=== PATIENT | female | born 1945 | race Caucasian/White ===

== ENCOUNTER 2018-02-25 08:04 | Emergency (ER) | payer MEDICARE, OTHER ==
[~2018-02-25] VITALS: Ht 162.6 cm; Wt 63.5 kg
[~2018-02-25 08:04] MED LIST: HORMONE REPLACEMENT; HYDMOR4 PO; MECL12.5 PO; NEBI10 PO; NEBI5 PO; OXYACE5T PO; OXYC5 PO; PROM25 PO; Roxicodone5 MG PO
[2018-02-25] MEDS ORDERED: Ultram50 MG PO (09:11)
[2018-02-25] MEDS ORDERED: Zofran4 MG PO (09:11)
[2018-02-25] MEDS ORDERED: METPRE4DP PO (09:11)
[2018-02-25] MEDS ORDERED: Valium5 MG PO (09:11)
== END 2018-02-25 10:00 | disposition home or self-care (01) ==
LOC: ER 08:04
DX: M62.830 Muscle spasm of back (principal); Z88.8 Allergy status to other drugs, medicaments and biological substances; Z88.5 Allergy status to narcotic agent; Z88.2 Allergy status to sulfonamides; Z79.899 Other long term (current) drug therapy
CPT/HCPCS: J1100; J3010

== ENCOUNTER 2020-07-12 15:39 | Inpatient (IN) | payer MEDICARE, OTHER ==
[~2020-07-12] VITALS: Ht 162.6 cm; Wt 68.2 kg
[~2020-07-12 15:39] MED LIST changes: +METPRE4DP PO; +Ultram50 MG PO; +Valium5 MG PO; +Zofran4 MG PO
[2020-07-12] MEDS ORDERED: Methocarbamol500 MG PO (16:00)
[2020-07-12] MEDS ORDERED: [UNRECOGNIZED DRUG - OTHER] (16:01)
[2020-07-12 16:18] LABS: BASOPHILS ABSOLUTE AUTO 0.05 K/mm3 (0.00-0.23); BASOPHILS PERCENT AUTO 1 % (0-2); EOSINOPHILS ABSOLUTE AUTO 0.09 K/mm3 (0.00-0.68); EOSINOPHILS PERCENT AUTO 1 % (0-6); Hematocrit 42.9 % (33.0-51.0); Hemoglobin 14.4 g/dL (11.5-16.0); IMMATURE GRAN ABSOLUTE AUTO 0.03 K/mm3 (0.00-0.10); IMMATURE GRAN PERCENT AUTO 0 % (0-1); LYMPHOCYTES ABSOLUTE AUTO 2.44 K/mm3 (0.84-5.20); LYMPHOCYTES PERCENT AUTO 26 % (21-46); MONOCYTES ABSOLUTE AUTO 0.69 K/mm3 (0.16-1.47); MONOCYTES PERCENT AUTO 7 % (4-13); Mean Corpuscular HGB Conc 33.6 g/dL (31.5-36.5); Mean Corpuscular Volume 98 fL (80-100); Mean Platelet Volume 9.9 fL (9.1-12.4); NEUTROPHILS ABSOLUTE AUTO 5.97 K/mm3 (1.96-9.15); NEUTROPHILS PERCENT AUTO 65 % (41-73); Platelet Count 253 K/mm3 (150-400); RDW Coefficient Variation 12.4 % (11.7-14.2); RDW Standard Deviation 45.1 fL (35.1-46.3); Red Blood Cell Count 4.36 M/mm3 (3.80-5.20); White Blood Cell Count 9.27 K/mm3 (4.00-11.30)
[2020-07-12 16:31] LABS: Alanine Aminotransfer (ALT/SGP 27 U/L (12-78); Albumin, Blood 3.1 g/dL (3.4-5.0); Albumin/Globulin Ratio 0.8 (0.8-1.8); Alk Phos 74 U/L (50-136); Anion Gap 5 mmol/L (6-16); Aspartate Aminotrans (AST/SGOT 17 U/L (12-37); Bilirubin, Total 0.2 mg/dL (0.1-1.0); Blood Urea Nitrogen 17 mg/dL (8-24); Bun/Creatinine Ratio 19.9 (12.0-20.0); CO2, Blood 29 mmol/L (21-32); Calcium, Blood 8.7 mg/dL (8.5-10.1); Chloride, Blood 107 mmol/L (98-108); Creatinine, Blood 0.85 mg/dL (0.40-1.00); Globulin, Blood 4.1 g/dL (2.2-4.0); Glomerular Filtration Rate >60 (60-); Glucose, Blood 130 mg/dL (70-99); Magnesium, Blood 2.4 mg/dL (1.6-2.4); Potassium, Blood 4.2 mmol/L (3.5-5.5); Sodium, Blood 141 mmol/L (136-145); Total Protein, Blood 7.2 g/dL (6.4-8.2); Troponin I <0.015 ng/mL (0.000-0.040)
[2020-07-13 02:57] LABS: CHOL/HDL RATIO 3.3; Cholesterol 226 mg/dL (50-200); HDL Cholesterol 69 mg/dL (>39); LDL/HDL RATIO 1.9; Low Density Lipoprotein Chol 134 mg/dL (0-110); Triglycerides 113 mg/dL (30-160); Very Low Density Lipoprot Chol 22 mg/dL (6-32)
--- NOTE | 2020-07-13 05:22 | NUR ---
PT RESTED COMFORTABLY THROUGH NIGHT. BP ELEVATED - HYDRALAZINE X1 WITH CORRECTION. TROPONIN ELEVATED SOME - NOT CRITICAL. AMBULATES INDEPENDENTLY IN ROOM. VOIDING. 1 BM. TELE NSR. CALL LIGHT WITHIN REACH, BED IN LOWEST POSITION. [facility]. UPDATED DAUGHTER ABOUT PLAN FOR THE NIGHT.
--- NOTE | 2020-07-13 07:24 | NUR ---
ASSUMED PATIENT CARE. PATIENT SLEEPING COMFORTABLY IN BED, NO SIGNS OF ACUTE DISTRESS, WCTM.
[2020-07-13 11:19] LABS: CPK Creatine Kinase 171 U/L (26-193)
[2020-07-13 13:37] LABS: International Normalized Ratio 0.99; Prothrombin Time Results 10.6 Sec (9.7-11.5)
--- NOTE | 2020-07-13 18:07 | NUR ---
PATIENT DENIED CHEST PAIN THIS SHIFT, COMPLAINS OF CHRONIC NECK PAIN, HYPERTENSIVE AT TIMES. PATIENT CT NEGATIVE FOR PE, ECHO DONE, HEPARIN DRIP STARTED. PATIENT INDEPENDENT IN ROOM, SR. CRITICAL TROPONIN THIS SHIFT, DR. WAGONER NOTIFIED AND CARDIOLOGY CONSULT ORDERED. DR. LORD SAW PATIENT TODAY, PLAN IS FOR ANGIO TOMORROW.
--- NOTE | 2020-07-13 19:08 | NUR ---
RELINQUISHED PATIENT CARE.
[2020-07-14] MEDS ORDERED: MELATONIN5 M1 PO (02:02)
[2020-07-14] MEDS ORDERED: NIGHTTIME SLEEP PO (02:03)
[2020-07-14 03:48] LABS: Hematocrit 39.5 % (33.0-51.0); Hemoglobin 13.3 g/dL (11.5-16.0); Mean Corpuscular HGB 33.1 pg (26.0-34.0); Mean Corpuscular HGB Conc 33.7 g/dL (31.5-36.5); Mean Corpuscular Volume 98 fL (80-100); Mean Platelet Volume 10.3 fL (9.1-12.4); Platelet Count 222 K/mm3 (150-400); RDW Coefficient Variation 12.6 % (11.7-14.2); RDW Standard Deviation 45.2 fL (35.1-46.3); Red Blood Cell Count 4.02 M/mm3 (3.80-5.20); White Blood Cell Count 9.01 K/mm3 (4.00-11.30)
[2020-07-14 04:02] LABS: Albumin, Blood 2.8 g/dL (3.4-5.0); Anion Gap 5 mmol/L (6-16); Blood Urea Nitrogen 12 mg/dL (8-24); Bun/Creatinine Ratio 15.1 (12.0-20.0); CO2, Blood 27 mmol/L (21-32); Chloride, Blood 110 mmol/L (98-108); Glomerular Filtration Rate >60 (60-); Glucose, Blood 112 mg/dL (70-99); Phosphorus, Blood 2.6 mg/dL (2.5-4.9); Potassium, Blood 3.9 mmol/L (3.5-5.5); Sodium, Blood 142 mmol/L (136-145)
--- NOTE | 2020-07-14 04:49 | NUR ---
SHIFT SUMMARY: PATIENT ASKED TO HAVE THE SAME MEDICATIONS SHE TAKES AT HOME FOR INSOMNIA, NOTIFIED, ORDERS RECIEVED. NPO SINCE 0000, NO OTHER ISSUES NOTED.
--- NOTE | 2020-07-14 07:30 | NUR ---
ASSUMED CARE: PT RESTING QUIETLY AT THIS TIME. NPO SIGN IN PLACE FOR ANGIO LATER THIS AM. NSR ON TELE. NO ACUTE NEEDS OR CONCERNS AT THIS TIME.
--- NOTE | 2020-07-14 11:59 | NUR ---
PT TAKEN TO SPINNING OPERATOR BY [facility] STAFF AT THIS TIME.
--- NOTE | 2020-07-14 14:14 | NUR ---
PT RETURNED FROM ASSISTANCE SPECIALIST WITH TR BAND TO RIGHT WRIST. SLIGHT BRUISE NOTED. NO FURTHER SIGNS OF BLEEDING, SWELLING 12CC AIR IN TR BAND. VSS AT THIS TIME.
--- NOTE | 2020-07-14 14:22 | NUR ---
PT INSTRUCTED ON LIFTING AND MOVEMENT PRECAUTIONS WITH RIGHT WRIST
--- NOTE | 2020-07-14 14:54 | NUR ---
PT BEGAN OOZING FROM TR BAND AND BRUISING NOTED TO SPREAD BEYOND WRIST. ALREADY HAD 12CC IN PLACE AND FINGERS COLD BUT PULSE FELT. CALL TO DR HAND WHO CAME AND ADDED ANOTHER 3CC AND STATED TO KEEP INFLATED FOR EXTRA HOUR. EXERCISE INSTRUCTOR AT BEDSIDE ASSISTING AND AWARE OF ORDERS
--- NOTE | 2020-07-14 18:32 | NUR ---
SHIFT SUMMARY: STARTED TO DEFLATE TR BAND, 3CC OUT. HEMATOMA TO RIGHT ARM DARKER BUT NO LARGER. BRUISING ALSO NOTED TO RIGHT AND LEFT ARMS WHERE COBAN WAS IN PLACE PRIOR TO PROCEDURE. PT STATES SHE FELT LIKE IT WAS PINCHING HER. DENIES CHEST PAIN OR FURTHER DISCOMFORT AT THIS TIME.
--- NOTE | 2020-07-14 19:20 | NUR ---
BEDSIDE REPORT WITH SLIGHT OOZING NOTED. REINFLATED 2CC TO TR BAND. NIGHT RN AWARE AND SAW CURRENT BRUISING
--- NOTE | 2020-07-14 22:50 | NUR ---
CT PATIENT C/O SUDDEN 10/10 MCKEON, HR INCREASED TO 120 AND BP BUMPED TO 150'S SYSTOLIC, TEMP 100.0. PATIENT VOMITING. MD NOTIFIED AND MORPHINE AND ZOFRAN ADMINISTERED, PATIENT STATED THEY DID NOT WORK, LIGHT AND NOISE INCREASING PATIENTS PAIN. CT COMPLETED, SECOUND DOSE OF PAIN AND NAUSEA MEDICATION ADMINISTERED BEFORE CT. APPROX [address] PATIENT FELL ASLEEP, HR AND BP WNL AT THIS TIME. MONITORING CLOSELY, TEMP NOW 99.8.
--- NOTE | 2020-07-14 22:54 | NUR ---
TR BAND PATIENT HAD ISSUES WITH TR BAND BLEEDING WITH DEFLATION ATTEMPT ON DAY SHIFT. AT CHANGE OF SHIFT PATIENT HAD 14CC AIR IN BAND AND HAD NO SIGN OF BLEEDING, GOOD CAP REFILL AND NO NUMB SENSATIONS DISTAL TO SITE. APPROX 4CC AIR DEFLATED FROM BAND FROM 1929 TO 2199 WITH NO SIGN OF BLEEDING, NO WORSENING OF HEMATOMA, CAPILLARY REFILL <3 AND FULL SENSATION WITH NO PAIN ON HAND/FINGERS DISTAL TO SITE.
--- NOTE | 2020-07-15 05:47 | NUR ---
SHIFT SUMMARY: PATIENTS MCKEON BETTER AFTER 500ML IVF PER MD ORDERS. VSS, CALL LIGHT WTIHIN REACH, BED LOW AND LOCKED, NO OTHER ISSUES NOTED THIS SHIFT.
[2020-07-15 10:18] LABS: BASOPHILS ABSOLUTE AUTO 0.05 K/mm3 (0.00-0.23); BASOPHILS PERCENT AUTO 1 % (0-2); EOSINOPHILS ABSOLUTE AUTO 0.03 K/mm3 (0.00-0.68); EOSINOPHILS PERCENT AUTO 0 % (0-6); Hemoglobin 11.9 g/dL (11.5-16.0); IMMATURE GRAN ABSOLUTE AUTO 0.03 K/mm3 (0.00-0.10); IMMATURE GRAN PERCENT AUTO 0 % (0-1); LYMPHOCYTES ABSOLUTE AUTO 2.27 K/mm3 (0.84-5.20); LYMPHOCYTES PERCENT AUTO 22 % (21-46); MONOCYTES ABSOLUTE AUTO 1.06 K/mm3 (0.16-1.47); MONOCYTES PERCENT AUTO 10 % (4-13); Mean Corpuscular HGB Conc 33.1 g/dL (31.5-36.5); Mean Corpuscular Volume 100 fL (80-100); Mean Platelet Volume 9.9 fL (9.1-12.4); NEUTROPHILS ABSOLUTE AUTO 6.97 K/mm3 (1.96-9.15); NEUTROPHILS PERCENT AUTO 67 % (41-73); Platelet Count 212 K/mm3 (150-400); RDW Coefficient Variation 12.6 % (11.7-14.2); RDW Standard Deviation 46.3 fL (35.1-46.3); Red Blood Cell Count 3.61 M/mm3 (3.80-5.20); White Blood Cell Count 10.41 K/mm3 (4.00-11.30)
[2020-07-15 10:30] LABS: Albumin, Blood 2.4 g/dL (3.4-5.0); Anion Gap 5 mmol/L (6-16); Blood Urea Nitrogen 11 mg/dL (8-24); Bun/Creatinine Ratio 16.3 (12.0-20.0); CO2, Blood 27 mmol/L (21-32); Chloride, Blood 107 mmol/L (98-108); Creatinine, Blood 0.68 mg/dL (0.40-1.00); Glomerular Filtration Rate >60 (60-); Glucose, Blood 108 mg/dL (70-99); Phosphorus, Blood 2.6 mg/dL (2.5-4.9); Potassium, Blood 3.5 mmol/L (3.5-5.5); Sodium, Blood 139 mmol/L (136-145)
[2020-07-15] MEDS ORDERED: CLOP75 PO (10:59)
[2020-07-15] MEDS ORDERED: ATOR80 PO (10:59)
[2020-07-15] MEDS ORDERED: ASPI81CH PO (10:59)
--- NOTE | 2020-07-15 12:18 | NUR ---
PCU DISCHARGE SUMMARY PATIENT LEFT UNIT IN NO ACUTE DISTRESS HOME WITH . RESP E/U ON ROOM AIR. VSS. PATIENT VERBALIZED DISCHARGE INSTRUCTIONS FOR ALL NEW MEDICATIONS (SENT TO PHARMACY), FOLLOW UP APPTS AND POST PROCEDURE INSTRUCTIONS FOR RIGHT RADIAL SITE AND PCI. PATIENT AMBULATED 300 FEET AROUND UNIT PRIOR TO DISCHARGE AND TOLERATED WELL WITH NO CHEST PAIN OR SOB.
== END 2020-07-15 12:17 | disposition home or self-care (01) | DRG 247 ==
LOC: ER 15:39 → PCU 15:40
PROVIDERS: Emergency Medicine; Internal Medicine; ADMIT Hospitalist
PROC: 027034Z Dilation of Coronary Artery, One Artery with Drug-eluting Intraluminal Device, Percutaneous Approach (ICD-10-PCS; principal; 2020-07-14)
PROC: 4A023N7 Measurement of Cardiac Sampling and Pressure, Left Heart, Percutaneous Approach (ICD-10-PCS; 2020-07-14)
PROC: B2111ZZ Fluoroscopy of Multiple Coronary Arteries using Low Osmolar Contrast (ICD-10-PCS; 2020-07-14)
PROC: B240ZZ3 Ultrasonography of Single Coronary Artery, Intravascular (ICD-10-PCS; 2020-07-14)
DX: I21.4 Non-ST elevation (NSTEMI) myocardial infarction (principal); I10 Essential (primary) hypertension; E03.9 Hypothyroidism, unspecified; E78.5 Hyperlipidemia, unspecified; I25.10 Atherosclerotic heart disease of native coronary artery without angina pectoris
CPT/HCPCS: 36415; 70450; 71046; 71260; 76937; 80053; 80061; 80069; 82550; 83036; 83735; 84484; 85025; 85027; 85347; 85610; 85730; 92978; 93005; 93010; 93306; 93458; 96374; 96375; 96376; 99152; 99153; 99285-25; A9270-GY; C1725; C1751; C1753; C1769; C1874; C1887; C1894; C9600; G0378; J0360; J1644; J2250; J2270; J2405; J3010; J7030; J7040; J7050; Q9967

== ENCOUNTER → 2020-08-05 | Outpatient (CLI) | payer MEDICARE, OTHER ==
[~2020-08-05] MED LIST changes: +ASPI81CH PO; +ATOR80 PO; +CLOP75 PO; +MELATONIN5 M1 PO; +Methocarbamol500 MG PO; +NIGHTTIME SLEEP PO; +[UNRECOGNIZED DRUG - OTHER]
== END | disposition home or self-care (01) ==
LOC: LAB SHORT 14:28 → PLD 14:28
DX: D18.01 Hemangioma of skin and subcutaneous tissue (principal)
CPT/HCPCS: 88305

== ENCOUNTER 2021-12-15 15:52 | Emergency (ER) | payer MEDICARE, OTHER ==
[~2021-12-15] VITALS: Ht 162.6 cm; Wt 57.6 kg
[2021-12-15 17:05] LABS: BASOPHILS ABSOLUTE AUTO 0.04 K/mm3 (0.00-0.23); BASOPHILS PERCENT AUTO 1 % (0-2); EOSINOPHILS ABSOLUTE AUTO 0.09 K/mm3 (0.00-0.68); EOSINOPHILS PERCENT AUTO 1 % (0-6); Hematocrit 40.1 % (33.0-51.0); Hemoglobin 13.8 g/dL (11.5-16.0); IMMATURE GRAN ABSOLUTE AUTO 0.01 K/mm3 (0.00-0.10); IMMATURE GRAN PERCENT AUTO 0 % (0-1); LYMPHOCYTES PERCENT AUTO 28 % (21-46); MONOCYTES PERCENT AUTO 8 % (4-13); Mean Corpuscular HGB 33.3 pg (26.0-34.0); Mean Corpuscular HGB Conc 34.4 g/dL (31.5-36.5); Mean Corpuscular Volume 97 fL (80-100); Mean Platelet Volume 10.4 fL (9.1-12.4); NEUTROPHILS PERCENT AUTO 62 % (41-73); Platelet Count 206 K/mm3 (150-400); RDW Coefficient Variation 12.1 % (11.7-14.2); RDW Standard Deviation 43.5 fL (35.1-46.3); Red Blood Cell Count 4.15 M/mm3 (3.80-5.20); White Blood Cell Count 7.54 K/mm3 (4.00-11.30)
[2021-12-15 17:16] LABS: Alanine Aminotransfer (ALT/SGP 23 U/L (12-78); Albumin, Blood 3.3 g/dL (3.4-5.0); Albumin/Globulin Ratio 0.9 (0.8-1.8); Alk Phos 57 U/L (50-136); Anion Gap 5 mmol/L (6-16); Aspartate Aminotrans (AST/SGOT 18 U/L (12-37); Bilirubin, Total 0.3 mg/dL (0.1-1.0); Blood Urea Nitrogen 15 mg/dL (8-24); Bun/Creatinine Ratio 18.9 (12.0-20.0); CO2, Blood 27 mmol/L (21-32); Calcium, Blood 8.8 mg/dL (8.5-10.1); Chloride, Blood 108 mmol/L (98-108); Globulin, Blood 3.6 g/dL (2.2-4.0); Glomerular Filtration Rate >60 (60-); Glucose, Blood 99 mg/dL (70-99); Potassium, Blood 4.3 mmol/L (3.5-5.5); Sodium, Blood 140 mmol/L (136-145); Total Protein, Blood 6.9 g/dL (6.4-8.2); Troponin I <0.015 ng/mL (0.000-0.040)
== END 2021-12-15 18:40 | disposition home or self-care (01) ==
LOC: ER 15:52
PROVIDERS: Emergency Medicine
DX: R07.89 Other chest pain (principal); I10 Essential (primary) hypertension; E03.9 Hypothyroidism, unspecified; Z79.82 Long term (current) use of aspirin; Z79.899 Other long term (current) drug therapy; Z88.2 Allergy status to sulfonamides; Z88.6 Allergy status to analgesic agent; Z88.8 Allergy status to other drugs, medicaments and biological substances
CPT/HCPCS: 36415; 80053; 84484; 85025; 93005; 93010; 99285-25

== ENCOUNTER 2022-07-17 14:04 | Emergency (ER) | payer MEDICARE, OTHER ==
[~2022-07-17] VITALS: Ht 162.6 cm; Wt 56.7 kg
[2022-07-17 15:38] LABS: BASOPHILS ABSOLUTE AUTO 0.04 K/mm3 (0.00-0.23); BASOPHILS PERCENT AUTO 1 % (0-2); EOSINOPHILS ABSOLUTE AUTO 0.06 K/mm3 (0.00-0.68); EOSINOPHILS PERCENT AUTO 1 % (0-6); Hemoglobin 13.6 g/dL (11.5-16.0); IMMATURE GRAN ABSOLUTE AUTO 0.02 K/mm3 (0.00-0.10); IMMATURE GRAN PERCENT AUTO 0 % (0-1); LYMPHOCYTES ABSOLUTE AUTO 1.63 K/mm3 (0.84-5.20); LYMPHOCYTES PERCENT AUTO 25 % (21-46); MONOCYTES PERCENT AUTO 8 % (4-13); Mean Corpuscular HGB 33.5 pg (26.0-34.0); Mean Corpuscular Volume 99 fL (80-100); Mean Platelet Volume 10.4 fL (9.1-12.4); NEUTROPHILS ABSOLUTE AUTO 4.37 K/mm3 (1.96-9.15); NEUTROPHILS PERCENT AUTO 66 % (41-73); Platelet Count 224 K/mm3 (150-400); RDW Coefficient Variation 12.2 % (11.7-14.2); RDW Standard Deviation 44.4 fL (35.1-46.3); Red Blood Cell Count 4.06 M/mm3 (3.80-5.20); White Blood Cell Count 6.62 K/mm3 (4.00-11.30)
[2022-07-17 15:47] LABS: Albumin, Blood 3.4 g/dL (3.4-5.0); Albumin/Globulin Ratio 0.9 (0.8-1.8); Bilirubin, Total 0.4 mg/dL (0.1-1.0); Bun/Creatinine Ratio 22.4 (12.0-20.0); Calcium, Blood 9.1 mg/dL (8.5-10.1); Creatinine, Blood 0.76 mg/dL (0.40-1.00); Globulin, Blood 3.8 g/dL (2.2-4.0); Potassium, Blood 4.2 mmol/L (3.5-5.5); Total Protein, Blood 7.2 g/dL (6.4-8.2)
== END 2022-07-17 18:59 | disposition home or self-care (01) ==
LOC: ER 14:04
PROVIDERS: Physician Assistant
DX: R51.9 Headache, unspecified (principal); I10 Essential (primary) hypertension; E03.9 Hypothyroidism, unspecified; I25.2 Old myocardial infarction; Z79.899 Other long term (current) drug therapy; Z79.82 Long term (current) use of aspirin; Z79.02 Long term (current) use of antithrombotics/antiplatelets; Z88.6 Allergy status to analgesic agent; Z88.1 Allergy status to other antibiotic agents; Z88.5 Allergy status to narcotic agent; Z88.2 Allergy status to sulfonamides
CPT/HCPCS: 36415; 70450; 71046; 80053; 83690; 83880; 84484; 85025; 93005; 93010

== ENCOUNTER → 2023-03-25 | Outpatient (CLI) | payer MEDICARE, OTHER ==
[2023-03-25 17:28] LABS: Magnesium, Blood 2.1 mg/dL (1.6-2.4)
== END | disposition home or self-care (01) ==
LOC: LAB 15:00 → LAB SHORT 15:00
PROVIDERS: Nurse Practitioner Family
DX: D51.9 Vitamin B12 deficiency anemia, unspecified (principal); R53.83 Other fatigue
CPT/HCPCS: 82607; 83540; 83735

== ENCOUNTER → 2023-08-02 | Outpatient (CLI) | payer MEDICARE, OTHER ==
[2023-08-02 19:09] LABS: Adenovirus F 40/41 Not Detected (NOT DETECT); Astrovirus Not Detected (NOT DETECT); Campylobacter Sp Not Detected (NOT DETECT); Cryptosporidium Not Detected (NOT DETECT); Cyclospora Cayetanensis Not Detected (NOT DETECT); E. Coli O157 Not Detected (NOT DETECT); Entamoeba Histolytica Not Detected (NOT DETECT); Enteroaggregative E. coli-EAEC Not Detected (NOT DETECT); Enteropathogenic E. coli-EPEC Not Detected (NOT DETECT); Enterotoxigenic E. coli-ETEC Not Detected (NOT DETECT); Giardia Lamblia Not Detected (NOT DETECT); Norovirus GI/GII Not Detected (NOT DETECT); Plesiomonas Shigelloides Not Detected (NOT DETECT); Rotavirus A Not Detected (NOT DETECT); Salmonella Sp Not Detected (NOT DETECT); Sapovirus Not Detected (NOT DETECT); Shiga Toxin-prod E. coli-STEC Not Detected (NOT DETECT); Shigella/Enteroin E. coli-EIEC Not Detected (NOT DETECT); Vibrio Cholerae Not Detected (NOT DETECT); Vibrio Sp Not Detected (NOT DETECT); Yersinia Enterocolitica Not Detected (NOT DETECT)
== END | disposition home or self-care (01) ==
LOC: LAB SHORT 15:14 → LAB 15:14
PROVIDERS: Family Medicine
DX: R19.7 Diarrhea, unspecified (principal)
CPT/HCPCS: 87507